=== PATIENT | male | born 1970 | race Caucasian/White ===

== ENCOUNTER 2019-07-22 06:53 | Emergency (ER) | payer OTHER, SELFPAY ==
[2019-07-22] MEDS ORDERED: BUPIVACAINE 0.5% PF 10 ML VIAL ONE ×2 (07:17→07:18)
[2019-07-22] MEDS ORDERED: LIDOCAINE 1% W/EPI 1:100,000 MDV 20 ML VIAL ONE (07:17)
[2019-07-22] MEDS ORDERED: TETANUS & DIPHTHERIA TOX,ADULT 0.5 ML VIAL ONE (07:17)
[2019-07-22] MEDS ORDERED: LIDOCAINE 1% W/EPI 1:100,000 MDV 50 ML VIAL ONE (07:18)
--- NOTE | 2019-07-22 07:39 | EDPHYS ---
Physician Documentation [facility] Name: Skinny Gilman Age: 48 yrs Sex: Male : 1970 Arrival Date: 07/22/2019 Time: 06:53 Bed 4 Private MD: ED Physician Hu Chisholm HPI: 07/21 07:05 This 48 yrs old Male presents to ER via Unassigned with complaints of Fall cp Injury. 07:05 The patient has a laceration related to: falling from a standing position, occurred cp outdoors. The laceration(s) is(are) located on the right arm axilla. Onset: The symptoms/episode began/occurred this morning. Historical: - Allergies: 07:00 No Known Allergies; rr5 - Home Meds: 07:00 None [Active]; rr5 - PMHx: 07:00 mentally delayed; Schizophrenia; rr5 - Immunization history:: Adult Immunizations up to date, Last tetanus immunization: up to date. - Social history:: Smoking status: Patient reports the use of cigarette tobacco products, smokes one-half pack cigarettes per day, Patient/guardian denies using alcohol, street drugs. ROS: 07:10 Constitutional: Negative for body aches, chills, fever, poor PO intake. cp 07:10 Cardiovascular: Negative for chest pain. cp 07:10 Respiratory: Negative for shortness of breath, wheezing. 07:10 Abdomen/GI: Negative for abdominal pain. 07:10 Skin: Positive for laceration(s), of the right arm axilla. 07:10 Neuro: Negative for altered mental status, headache, loss of consciousness, syncope, weakness. 07:10 All other systems are negative. Exam: 07:20 Constitutional: The patient appears in no acute distress, alert, awake, cp non-diaphoretic, non-toxic, well developed, well nourished. 07:20 Head/Face: Normocephalic, atraumatic. cp 07:20 Eyes: Periorbital structures: appear normal, Pupils: equal, round, and reactive to light and accomodation, Extraocular movements: intact throughout, Conjunctiva: normal, no exudate, no injection, Lids and lashes: appear normal, bilaterally. 07:20 ENT: External ear(s): are unremarkable, Nose: is normal, Mouth: is normal. 07:20 Neck: ROM/movement: is normal, is supple, without pain, no range of motions limitations, no nuchal rigidity. 07:20 Chest/axilla: Axilla: laceration noted right arm axilla. 07:20 Cardiovascular: Rate: normal, Rhythm: regular, JVD: is not appreciated. 07:20 Respiratory: the patient does not display signs of respiratory distress, Respirations: normal, no use of accessory muscles, no retractions, labored breathing, is not present, Breath sounds: are clear throughout, no decreased breath sounds, no stridor, no wheezing. 07:20 Abdomen/GI: Inspection: abdomen appears normal, Palpation: abdomen is soft and non-tender, in all quadrants. 07:20 Neuro: Orientation: to person, place \T\ time. Mentation: is normal, Motor: moves all fours, strength is normal, Sensation: is normal. Vital Signs: 07:00 BP 131 / 99; Pulse 87; Resp 19; Temp 97.5; Pulse Ox 99% ; Weight 77.11 kg; Height 6 ft. rr5 1 in. (185.42 cm); Pain 2/10; 07:00 Body Mass Index 22.43 (77.11 kg, 185.42 cm) rr5 MDM: 07:04 Patient medically screened. cp 07:11 Test interpretation: by ED physician or midlevel provider: chest xray negative for cp acute findings. 07:37 Data reviewed: vital signs, nurses notes. cp 07:37 Differential diagnosis: superficial laceration, pneumothorax. Counseling: I had a cp detailed discussion with the patient and/or guardian regarding: the historical points, exam findings, and any diagnostic results supporting the discharge/admit diagnosis, to return to the emergency department if symptoms worsen or persist or if there are any questions or concerns that arise at home. Refusal of service: The patient/guardian displays adequate decision making capability and despite a detailed discussion of alternatives, benefits, risks, and consequences refuses: suture repair to close laceration. ED course: VSS. Wound cleaned and dressed. Patient refuses sutures. Will discharge to home for continued monitoring. 07/21 07:01 Order name: Chest Single View XRAY lp1 07/21 07:03 Order name: Wound Care: clean and irrigate wound cp 07/21 07:03 Order name: Dressing - Wound cp 07/21 07:03 Order name: Gloves, Sterile cp 07/21 07:03 Order name: Setup Suture Tray cp Administered Medications: No medications were administered Disposition: 07:55 Chart complete. cp 09:40 Co-signature as Attending Physician, Hu Chisholm MD I agree with the assessment and kdr plan of care. Disposition: 07/22/19 07:38 Discharged to Home. Impression: Laceration without foreign body of right upper arm - axilla. - Condition is Stable. - Discharge Instructions: Laceration Care, Adult, Nonsutured Laceration Care. - Prescriptions for Keflex 500 mg Oral Capsule - take 1 capsule by ORAL route every 8 hours for 10 days; 30 capsule. - Medication Reconciliation Form, Thank You Letter, Antibiotic Education, Prescription Opioid Use form. - Follow up: Private Physician; When: 1 - 2 days; Reason: Wound Recheck. - Problem is new. - Symptoms have improved. Signatures: Dispatcher [employer] EDMS Hu Chisholm MD MD [facility] Andrew Greenberg PA PA cp Janny Hassan, RN RN Pete Torres, RN RN rr5 Corrections: (The following items were deleted from the chart) 07:08 07:07 This 48 yrs old Male presents to ER via Unassigned with complaints of cp Fall Injury. cp 07:49 07:38 07/22/2019 07:38 Discharged to Home. Impression: Laceration without foreign body hb of right upper arm - axilla. Condition is Stable. Forms are Medication Reconciliation Form, Thank You Letter, Antibiotic Education, Prescription Opioid Use. Follow up: Private Physician; When: 1 - 2 days; Reason: Wound Recheck. Problem is new. Symptoms have improved. cp
--- NOTE | 2019-07-22 07:39 | ER ---
Nurse's Notes [facility] Name: Skinny Gilman Age: 48 yrs Sex: Male : 1970 Arrival Date: 07/22/2019 Time: 06:53 Bed 4 Private MD: Diagnosis: Laceration without foreign body of right upper arm-axilla Presentation: 07/21 07:00 Chief complaint: Parent and/or Guardian states: he fell down and got caught his right rr5 armpit on a wooden fence. no LOC, no head trauma noted. 07:00 Coronavirus screen: Patient denies fever greater than 100.4F, cough, shortness of rr5 breath, or difficulty breathing. Proceed with normal triage process. Ebola Screen: Patient negative for fever greater than or equal to 101.5 degrees Fahrenheit, and additional compatible Ebola Virus Disease symptoms Patient denies exposure to infectious person. Patient denies travel to an Ebola-affected area in the 21 days before illness onset. Initial Sepsis Screen: Does the patient meet any 2 criteria? No. Patient's initial sepsis screen is negative. Does the patient have a suspected source of infection? No. Patient's initial sepsis screen is negative. Risk Assessment: Do you want to hurt yourself or someone else? Patient reports no desire to harm self or others. Onset of symptoms was July 22, 2019. 07:00 Method Of Arrival: Wheelchair rr5 07:00 Acuity: KELLY 3 rr5 Triage Assessment: 07:00 General: Appears in no apparent distress. comfortable, Behavior is calm, cooperative. rr5 Pain: Complains of pain in right axilla Pain does not radiate. Pain currently is 2 out of 10 on a pain scale. Quality of pain is described as aching, Pain began suddenly, Is intermittent. Neuro: Level of Consciousness is awake, alert, Oriented to person, place, time, situation. Cardiovascular: Capillary refill < 3 seconds Patient's skin is warm and dry. Respiratory: Airway is patent Respiratory effort is even, unlabored, Respiratory pattern is regular, symmetrical. Derm: Skin is intact, is healthy with good turgor, Skin temperature is warm Wound noted right axilla Wound is lacerated wound. Historical: - Allergies: 07:00 No Known Allergies; rr5 - Home Meds: 07:00 None [Active]; rr5 - PMHx: 07:00 mentally delayed; Schizophrenia; rr5 - Immunization history:: Adult Immunizations up to date, Last tetanus immunization: up to date. - Social history:: Smoking status: Patient reports the use of cigarette tobacco products, smokes one-half pack cigarettes per day, Patient/guardian denies using alcohol, street drugs. Screenin:35 Abuse screen: Denies threats or abuse. Denies injuries from another. Nutritional hb screening: No deficits noted. Tuberculosis screening: No symptoms or risk factors identified. Fall Risk None identified. Assessment: 07:15 General: Appears in no apparent distress. Behavior is calm, cooperative. Pain: Pain hb currently is 3 out of 10 on a pain scale. Neuro: Level of Consciousness is awake, alert, obeys commands, Oriented to person, place, time, situation. Cardiovascular: Capillary refill < 3 seconds Patient's skin is warm and dry. Respiratory: Airway is patent Respiratory effort is even, unlabored, Respiratory pattern is regular, symmetrical, Breath sounds are clear bilaterally. GI: No signs and/or symptoms were reported involving the gastrointestinal system. : No signs and/or symptoms were reported regarding the genitourinary system. EENT: No signs and/or symptoms were reported regarding the EENT system. Derm: Skin is pink, warm \T\ dry. Musculoskeletal: No signs and/or symptoms reported regarding the musculoskeletal system. Injury Description: Laceration sustained to right axilla. 07:35 Reassessment: Pt refused laceration repair, CHETAN Morales at bedside. hb Vital Signs: 07:00 BP 131 / 99; Pulse 87; Resp 19; Temp 97.5; Pulse Ox 99% ; Weight 77.11 kg; Height 6 ft. rr5 1 in. (185.42 cm); Pain 2/10; 07:00 Body Mass Index 22.43 (77.11 kg, 185.42 cm) rr5 ED Course: 06:53 Patient arrived in ED. ds1 07:00 Arm band placed on. rr5 07:01 Andrew Greenberg PA is PHCP. cp 07:01 Roberta Cruz MD is Attending Physician. cp 07:10 Triage completed. rr5 07:10 Chest Single View XRAY In Process Unspecified. EDMS 07:11 Patient has correct armband on for positive identification. Placed in gown. Bed in low rr5 position. Call light in reach. Pulse ox on. NIBP on. 07:23 Hu Chisholm MD is Attending Physician. cp 07:39 Janny Hassan, RN is Primary Nurse. hb 07:48 No provider procedures requiring assistance completed. Patient did not have IV access hb during this emergency room visit. Administered Medications: No medications were administered Outcome: 07:38 Discharge ordered by MD. cp 07:48 Discharged to home ambulatory, with family. hb 07:48 Condition: stable 07:48 Discharge instructions given to patient, family, Instructed on discharge instructions, follow up and referral plans. medication usage, wound care, Demonstrated understanding of instructions, follow-up care, medications, wound care, Prescriptions given X 1. 07:49 Patient left the ED. hb Signatures: Dispatcher [employer] EDKY Cecilia Nesbitt ds1 Andrew Greenberg PA PA cp Baxter, Heather, RN RN Pete Torres, RN RN rr5
[2019-07-22 07:57] VITALS: BP 131/99; TEMP 97.5; O2SAT 99
--- NOTE | 2019-07-22 08:32 | RAD REPORT ---
EXAM DESCRIPTION: RAD - Chest Single View - 07/22/2019 7:10 am CLINICAL HISTORY: puncture wound Chest pain. COMPARISON: No comparisons FINDINGS: Portable technique limits examination quality. The lungs are grossly clear. The heart is normal in size. No displaced fractures. IMPRESSION: No acute intrathoracic process suspected.
== END 2019-07-22 07:49 | disposition home or self-care (01) ==
LOC: ER 06:53
DX: S41.111A Laceration without foreign body of right upper arm, initial encounter (principal); W19.XXXA Unspecified fall, initial encounter; Y93.9 Activity, unspecified; Y92.89 Other specified places as the place of occurrence of the external cause; F17.210 Nicotine dependence, cigarettes, uncomplicated; F20.9 Schizophrenia, unspecified
CPT/HCPCS: 71045; 90714; 99283

== ENCOUNTER 2020-12-23 15:07 | Emergency (ER) | payer SELFPAY ==
--- NOTE | 2020-12-23 17:50 | ER ---
Nurse's Notes [facility] Name: Skinny Gilman Age: 50 yrs Sex: Male : 1970 Arrival Date: 12/23/2020 Time: 15:10 Bed Waiting Private MD: Diagnosis: Presentation: 12/23 15:44 Chief complaint: Patient states: "I coughed really hard 5 days ago and this knot popped ss up." PT c/o swelling to L groin area. Coronavirus screen: Vaccine status:. Ebola Screen: Patient denies exposure to infectious person. Patient denies travel to an Ebola-affected area in the 21 days before illness onset. Initial Sepsis Screen: Does the patient meet any 2 criteria? No. Patient's initial sepsis screen is negative. Does the patient have a suspected source of infection? No. Patient's initial sepsis screen is negative. Risk Assessment: Do you want to hurt yourself or someone else? Patient reports no desire to harm self or others. Onset of symptoms was December 18, 2020. 15:44 Method Of Arrival: Ambulatory 15:44 Acuity: KELLY 3 ss Historical: - Allergies: 15:45 PENICILLINS; ss - PMHx: 15:45 mentally delayed; Schizophrenia; ss - Immunization history:: Client reports having NOT received the Covid vaccine. - Social history:: Smoking status: Patient reports the use of cigarette tobacco products, smokes one pack cigarettes per day. Assessment: 17:49 Reassessment: Called from [facility] three times. No answer. Unable to locate patient. Vital Signs: 15:44 BP 132 / 84; Pulse 79; Resp 14; Temp 97.9(TE); Pulse Ox 99% on R/A; Weight 80.74 kg; ss Height 6 ft. 1 in. (185.42 cm); Pain 7/10; 15:44 Body Mass Index 23.48 (80.74 kg, 185.42 cm) ED Course: 15:10 Patient arrived in ED. ds1 15:45 Triage completed. ss 15:45 Arm band placed on right wrist. ss Administered Medications: No medications were administered Outcome: 17:49 Patient left the ED. Signatures: Cecilia Nesbitt ds1 Elizabeth Metzger RN RN
[2020-12-23 17:59] VITALS: BP 132/84; TEMP 97.9; O2SAT 99
== END 2020-12-23 17:49 | disposition left against medical advice (07) ==
LOC: ER 15:07
DX: Z53.21 Procedure and treatment not carried out due to patient leaving prior to being seen by health care provider (principal)
CPT/HCPCS: 99281

== ENCOUNTER 2021-04-24 11:38 | Emergency (ER) | payer SELFPAY ==
--- NOTE | 2021-04-24 13:56 | RAD REPORT ---
EXAM DESCRIPTION: US - Scrotum Testicles - 04/24/2021 1:44 pm CLINICAL HISTORY: SWELLING Pain and swelling COMPARISON: No comparisons FINDINGS: The right testicle 4.0 x 3.9 x 2.0 cm. No intratesticular masses or evidence of testicular torsion. The left testicle 4.1 x 3.6 x 2.4 cm. No intratesticular masses or evidence of testicular torsion. Both epididymides are normal in size and appearance. Mild fluid is seen in both scrotal sacs. IMPRESSION: No testicular mass or torsion is identified. No acute process seen.
--- NOTE | 2021-04-24 16:50 | EDPHYS ---
Physician Documentation [facility] Name: Skinny Gilman Age: 50 yrs Sex: Male : 1970 Arrival Date: 04/24/2021 Time: 11:40 Bed Waiting Private MD: ED Physician Hu Chisholm HPI: 04/24 13:25 This 50 yrs old Male presents to ER via Wheelchair with complaints of Altered Mental cp Status, Flank Pain. 13:25 The patient presents with swelling, of the left inguinal area, tenderness, of the left cp inguinal area. Onset: The symptoms/episode began/occurred yesterday. after lifting heavy object. 13:25 Associated signs and symptoms: Pertinent negatives: constipation, dysuria, fever, cp hematuria, vomiting. Historical: - Allergies: 13:01 PENICILLINS; vg1 - Home Meds: 13:01 None [Active]; vg1 - PMHx: 13:01 mentally delayed; Schizophrenia; vg1 - Immunization history:: Client reports having NOT received the Covid vaccine. - Social history:: Smoking status: Patient reports the use of cigarette tobacco products, smokes one pack cigarettes per day. ROS: 13:30 Constitutional: Negative for body aches, chills, fever, poor PO intake. cp 13:30 Eyes: Negative for injury, pain, redness, and discharge. cp 13:30 Cardiovascular: Negative for chest pain. 13:30 Respiratory: Negative for cough, shortness of breath, wheezing. 13:30 Abdomen/GI: Negative for nausea, vomiting, and diarrhea. 13:30 : Positive for left groin pain and swelling, Negative for urinary symptoms. 13:30 Neuro: Negative for headache, weakness. 13:30 All other systems are negative. Exam: 13:33 Constitutional: The patient appears in no acute distress, alert, awake, comfortable, cp non-toxic, well developed, well nourished. 13:33 Head/Face: Normocephalic, atraumatic. cp 13:33 Cardiovascular: Rhythm: regular, Edema: is not appreciated, JVD: is not appreciated. 13:33 Respiratory: the patient does not display signs of respiratory distress, Respirations: normal, no use of accessory muscles, no retractions, labored breathing, is not present. 13:33 Abdomen/GI: Inspection: abdomen appears normal, Bowel sounds: active, all quadrants, Hernia: noted in the left inguinal area, tenderness, that is mild. 13:33 Back: CVA tenderness, is absent. Vital Signs: 12:55 BP 113 / 76; Pulse 79; Resp 16; Temp 97.4; Pulse Ox 100% ; Weight 81.65 kg; Height 6 vg1 ft. 0 in. (182.88 cm); Pain 8/10; 12:55 Body Mass Index 24.41 (81.65 kg, 182.88 cm) vg1 MDM: 04/24 15:56 Order name: Basic Metabolic Panel cp 04/24 15:56 Order name: CBC with Diff 04/24 15:56 Order name: Hepatic Function 04/24 15:56 Order name: Lipase 04/24 13:05 Order name: Urine Dipstick-Ancillary (obtain specimen) 04/24 13:05 Order name: US Scrotum Testicles; Complete Time: 15:55 cp 04/24 15:56 Order name: IV Saline Lock 04/24 15:56 Order name: Labs collected and sent Administered Medications: No medications were administered Disposition: 18:02 Co-signature as Attending Physician, Hu Chisholm MD I agree with the assessment and kdr plan of care. Disposition Summary: 04/24/21 16:50 Eloped Disposition: before being seen by provider vg1 Reason: wait time vg1 Signatures: Dispatcher [employer] Hu Jaimes MD MD kdr Andrew Greenberg PA PA cp Garcia, Victoria, RN RN vg1
--- NOTE | 2021-04-24 16:50 | ER ---
Nurse's Notes [facility] Name: Skinny Gilman Age: 50 yrs Sex: Male : 1970 Arrival Date: 04/24/2021 Time: 11:40 Bed Waiting Private MD: Diagnosis: Presentation: 04/24 12:55 Chief complaint: Parent and/or Guardian states: late yesterday pt lifted something vg1 heavy and since has been c/o left side pain. states pt has been confused since this morning. Asked pt 'where are you' pt stated 'in my skin'. Pt is able to state and name. Coronavirus screen: Vaccine status: Patient reports being unvaccinated. Client denies travel out of the [place] in the last 14 days. Ebola Screen: Patient negative for fever greater than or equal to 101.5 degrees Fahrenheit, and additional compatible Ebola Virus Disease symptoms. Initial Sepsis Screen: Does the patient meet any 2 criteria? No. Patient's initial sepsis screen is negative. Does the patient have a suspected source of infection? No. Patient's initial sepsis screen is negative. Risk Assessment: Do you want to hurt yourself or someone else? Patient reports no desire to harm self or others. Onset of symptoms was April 23, 2021. 12:55 Method Of Arrival: Wheelchair vg1 12:55 Acuity: KELLY 3 vg1 Triage Assessment: 13:01 General: Appears in no apparent distress. uncomfortable, Behavior is calm, cooperative. vg1 Pain: Complains of pain in abdomen Pain currently is 8 out of 10 on a pain scale. Neuro: Level of Consciousness is awake, alert, obeys commands, Oriented to person, place, time, situation. Neuro: Driver'S License Examiner are equal bilaterally Moves all extremities. Historical: - Allergies: 13:01 PENICILLINS; vg1 - Home Meds: 13:01 None [Active]; vg1 - PMHx: 13:01 mentally delayed; Schizophrenia; vg1 - Immunization history:: Client reports having NOT received the Covid vaccine. - Social history:: Smoking status: Patient reports the use of cigarette tobacco products, smokes one pack cigarettes per day. Assessment: 16:49 Reassessment: registration stated pt left. vg1 Vital Signs: 12:55 BP 113 / 76; Pulse 79; Resp 16; Temp 97.4; Pulse Ox 100% ; Weight 81.65 kg; Height 6 vg1 ft. 0 in. (182.88 cm); Pain 8/10; 12:55 Body Mass Index 24.41 (81.65 kg, 182.88 cm) vg1 ED Course: 11:40 Patient arrived in ED. am2 13:01 Triage completed. vg1 13:01 Arm band placed on. vg1 13:24 Andrew Greenberg PA is PHCP. cp 13:24 Hu Chisholm MD is Attending Physician. cp 13:44 Scrotum Testicles In Process Unspecified. EDMS Administered Medications: No medications were administered Outcome: 16:50 Patient left the ED. vg1 Signatures: Dispatcher [employer] EDMS Andrew Greenberg PA PA cp Moreno, Amanda am2 Marina Roque, RN RN vg1
[2021-04-24 17:05] VITALS: BP 113/76; TEMP 97.4; O2SAT 100
== END 2021-04-24 16:50 | disposition left against medical advice (07) ==
LOC: ER 11:38
DX: R10.32 Left lower quadrant pain (principal); Z88.0 Allergy status to penicillin; Z53.21 Procedure and treatment not carried out due to patient leaving prior to being seen by health care provider
CPT/HCPCS: 76870; 99282

== ENCOUNTER 2023-01-14 17:22 | Emergency (ER) | payer SELFPAY ==
--- OUTSIDE RECORDS SUMMARY | 2023-01-14 17:26 | XMS REPORT | Continuity of Care Document ---
:1970 Author Organization [facility] t Address [address] [place] [address] [place] [id number] Care Team Providers Name Role Phone PCP, PATIENT DOES NOT HAVE A Primary Care Physician Pierre Saucedo MD Attending Clinician PIERRE JOHNSON Attending Clinician Unavailable Doctor Unassigned, [place] Attending Clinician Unavailable Payers Payer Name Policy Type Policy Number Effective Date Expiration Date S ource Problems Condition Condition Condition Status Onset Resolution Last Treating Co mments Source Name Details Category Date Date Treatment Clinician Date No known No known Disease Unive rs active active ity of problems problems [facility] Allergies, Adverse Reactions, Alerts Allergy Allergy Status Severity Reaction(s) Onset Inactive Treating Comm ents Source Name Type Date Date Clinician NO KNOWN Drug Active [facility] ALLERGIE Class ity of [facility] Social History Social Habit Start Date Stop Date Quantity Comments Source Sex Assigned At [birth year] [facility] 00:[facility]00 00:00:00 [facility] Smoking Status Start Date Stop Date Source Unknown if ever smoked [facility] Medications Ordered Filled Start Stop Current Ordering Indication Dosage Frequency Signature Comments Components Source Medication Medication Date Date Medication? Clinician (SIG) Name Name phenytoin 2017-04 Yes 100mg Take 100 Uni vers Extended 2-03 mg by ity of ([place] 21:04[place] 100 [place] 54 (two) Medical capsule times Branch daily. phenytoin 2017-04 Yes 100mg Take 100 Uni vers Extended 2-03 mg by ity of ([place]IL[place] 21:04: [place] 100 mg 54 (two) Medical capsule times Branch daily. Vital Signs Vital Name Observation Time Observation Value Comments Source Systolic blood 2021-06-26 18:46:00 143 mm[Hg] Univer sity of pressure [facility] Diastolic blood 2021-06-26 18:46:00 84 mm[Hg] Unive rsity of pressure [facility] Heart rate 2021-06-26 18:46:00 88 [facility] rate 2021-06-26 18:46:00 18 /min [facility] Body weight 2021-06-26 18:46:00 81.058 [facility] Oxygen saturation in 2021-06-26 18:46:00 100 /min [facility] Arterial blood by [facility] Pulse oximetry Branch Procedures Procedure Date / Time Performed Performing Clinician [facility] e NOTICE OF PRIVACY 2021-06-26 18:33:40 Doctor Unassigned, No Univ [facility] CONSENT/REFUSAL FOR 2021-06-26 18:30:43 Doctor Unassigned, No Un [facility] DIAGNOSIS AND Name Medical Branch TREATMENT Encounters Start End Encounter Admission Attending Care Care Encounter Source Date/Time Date/Time Type Type Clinicians Facility Department ID 2021-06-26 2021-06-26 [facility] [id number] Univers 12:48:00 14:55:00 Pierre PARDO [id number] i ty [facility] [id number] [facility] [id number] [facility] 084 Branch 2021-06-26 2021-06-26 [facility] [id number] Univers 12:48:00 14:55:00 PIERRE bird of [facility] 2021-06-26 2021-06-26 Orders Doctor VALLES [id number] Univers 00:00:00 00:00:00 Only Unassigned, VIRY [id number] ity of [place] [facility] [id number] [facility] [id number] [facility] 009 Branch Results This patient has no known results.
--- NOTE | 2023-01-14 20:40 | ER ---
Nurse's Notes [facility] Name: Skinny Gilman Age: 52 yrs Sex: Male : 1970 Arrival Date: 01/14/2023 Time: 17:22 Bed IW10 Private MD: Diagnosis: Abdominal pain, Generalized Presentation: 01/14 17:50 Chief complaint: Patient states: Abdominal pain after eating a chili dog from [facility], ph denies N/V/D. Coronavirus screen: Vaccine status:. Ebola Screen: No symptoms or risks identified at this time. Initial Sepsis Screen: Does the patient meet any 2 criteria? No. Patient's initial sepsis screen is negative. Does the patient have a suspected source of infection? No. Patient's initial sepsis screen is negative. Risk Assessment: Do you want to hurt yourself or someone else? Patient reports no desire to harm self or others. 17:50 Method Of Arrival: Ambulatory 17:50 Acuity: KELLY 3 17:51 Onset of symptoms was January 14, 2023. ph Triage Assessment: 17:54 General: Appears in no apparent distress. Behavior is cooperative, appropriate for age. ph Pain: Complains of pain in abdomen. GI: Reports lower abdominal pain, Patient currently denies diarrhea, nausea, vomiting. Historical: - Allergies: 17:51 PENICILLINS; ph - PMHx: 17:51 mentally delayed; Schizophrenia; ph - Immunization history:: Adult Immunizations unknown. - Social history:: Smoking status: Patient reports the use of cigarette tobacco products, smokes one pack cigarettes per day. Assessment: 20:40 General: left before receiving discharge papers . as6 Vital Signs: 17:51 BP 127 / 72; Pulse 81; Resp 18; Temp 98.7; Pulse Ox 99% on R/A; Weight 80.74 kg; Height ph 6 ft. 1 in. ; 17:51 Body Mass Index 23.48 (80.74 kg, 185.42 cm) ph ED Course: 17:27 Patient arrived in ED. mg5 17:38 Leila Cuellar FNP-C [facility]. kb 17:38 Vaughn Catherine MD is Attending Physician. kb 17:51 Triage completed. ph 17:54 Arm band placed on Patient placed in waiting room, Patient notified of wait time. ph 20:08 Patient's name was called from [facility]. No response. Unable to locate patient. Will as6 disposition as left without being seen by a provider. Administered Medications: No medications were administered Outcome: 20:40 Discharge ordered by . kb 20:41 Patient left the ED. as6 Signatures: Leila Cuellar FNP-C FNP-Ckb Hall, Patricia RN RN Jered Álvarez RN RN as6 Natividad Lincoln mg5
--- NOTE | 2023-01-14 20:41 | EDPHYS ---
Physician Documentation [facility] Name: Skinny Gilman Age: 52 yrs Sex: Male : 1970 Arrival Date: 01/14/2023 Time: 17:22 Bed IW10 Private MD: ED Physician Vaughn Catherine HPI: 01/14 20:43 This 52 yrs old Male presents to ER via Ambulatory with complaints of Abdominal Pain. kb 20:43 The patient presents with abdominal pain. Onset: The symptoms/episode began/occurred kb today. The symptoms do not radiate. Associated signs and symptoms: none. The symptoms are described as constant. Modifying factors: The symptoms are alleviated by nothing, the symptoms are aggravated by nothing. Severity of pain: At its worst the pain was mild moderate in the emergency department the pain is unchanged. The patient has not experienced similar symptoms in the past. The patient has not recently seen a physician. Pt reports general abd pain that started 30 minutes after eating a chili cheese coney from [employer] at lunch. Historical: - Allergies: 17:51 PENICILLINS; ph - PMHx: 17:51 mentally delayed; Schizophrenia; ph - Immunization history:: Adult Immunizations unknown. - Social history:: Smoking status: Patient reports the use of cigarette tobacco products, smokes one pack cigarettes per day. ROS: 20:41 Constitutional: Negative for fever, chills, and weight loss, kb 20:41 Abdomen/GI: Positive for abdominal pain, Negative for nausea, vomiting, and diarrhea, 20:41 All other systems are negative, Exam: 20:41 Constitutional: This is a well developed, well nourished patient who is awake, alert, kb and in no acute distress. Head/Face: Normocephalic, atraumatic. ENT: Moist Mucous membranes Cardiovascular: Regular rate Respiratory: Respirations even and unlabored. No increased work of breathing. Talking in full sentences Abdomen/GI: Soft, non-tender. No distention Skin: Warm, dry with normal turgor. Normal color. MS/ Extremity: Pulses equal, no cyanosis. Neurovascular intact. Full, normal range of motion. Neuro: Awake and alert, GCS 15, oriented to person, place, time, and situation. Moves all extremities. Normal gait. Vital Signs: 17:51 BP 127 / 72; Pulse 81; Resp 18; Temp 98.7; Pulse Ox 99% on R/A; Weight 80.74 kg; Height ph 6 ft. 1 in. ; 17:51 Body Mass Index 23.48 (80.74 kg, 185.42 cm) ph MDM: 17:53 Patient medically screened. kb 20:42 Differential diagnosis: diverticulitis, gastritis, non-specific abd pain. Data kb reviewed: vital signs, nurses notes. ED course: Pt elected to leave prior to diagnostics. . 01/14 17:54 Order name: IV Saline Lock kb 01/14 17:54 Order name: Labs collected and sent kb Administered Medications: No medications were administered Disposition: 21:31 Co-signature as Attending Physician, Vaughn Catherine MD I reviewed the patient's care rt provided by the Advanced Practice Provider and agree with the diagnosis and treatment plan. Disposition Summary: 01/14/23 20:40 Discharge Ordered Notes: Location: Home kb Condition: Stable kb Diagnosis - Abdominal pain, Generalized kb Followup: kb - With: Emergency Department - When: As needed - Reason: Worsening of condition Followup: kb - With: Private Physician - When: 2 - 3 days - Reason: Recheck today's complaints, Continuance of care, Re-evaluation by your physician Discharge Instructions: - Discharge Summary Sheet kb - Abdominal Pain, Adult, [id number] kb Forms: - Medication Reconciliation Form kb - Thank You Letter kb - Antibiotic Education kb - Prescription Opioid Use kb - Patient Portal Instructions kb - Leadership Thank You Letter kb Signatures: Dispatcher [employer] Leila Hernandez, BRYAN IBRAHIM-Noa Ceja, RN RN ph Vaughn Catherine MD MD rt
[2023-01-14 21:58] VITALS: BP 127/72; TEMP 98.7; O2SAT 99
== END 2023-01-14 20:41 | disposition home or self-care (01) ==
LOC: ER 17:22
DX: R10.84 Generalized abdominal pain (principal); F17.210 Nicotine dependence, cigarettes, uncomplicated; Z88.0 Allergy status to penicillin